=== PATIENT | female | born 1955 | race Caucasian/White ===

== ENCOUNTER 2017-01-29 08:11 | Day surgery (SDC) | payer OTHER, MEDICARE ==
--- NOTE | ~2017-01-29 | EGD ---
EGD REPORT [facility] [address] [address] NAME: EMMIE FLANAGAN : 57 STATUS : REG [facility]#: [id number] AGE: 61 ADM/REG DATE : 01/29/17 MR#: [id number] REPORT SERV DATE: 01/29/17 DICTATED BY: KAMAR HENLEY DATE: 01/29/17 REPORT STATUS : Draft [facility]ANS[facility] BY: [facility] DATE: 01/29/17 [facility] Patient Name: Emmie Flanagan Date of : 1955 Attending MD: BETH HENLEY MD Procedure Date No Time: 01/29/2017 Procedure: Colonoscopy Indications: Chronic diarrhea, Clinically significant diarrhea of unexplained origin Referring MD: SHANNA CASTILLO MD Medicines: See the Anesthesia note for documentation of the administered medications Complications: No immediate complications. Estimated blood loss: None. Procedure: Pre-Anesthesia Assessment: - ASA Grade Assessment: III - A patient with severe systemic disease. After I obtained informed consent, the scope was passed under direct vision. Throughout the procedure, the patient's blood pressure, pulse, and oxygen saturations were monitored continuously. The PCF [id number] was introduced through the anus and advanced to the cecum, identified by appendiceal orifice and ileocecal valve. The ileocecal valve, appendiceal orifice and rectum were photographed. The entire colon was examined. The colonoscopy was performed without difficulty. The patient tolerated the procedure well. The quality of the bowel preparation was adequate. Findings: The perianal and digital rectal examinations were normal. The colon (entire examined portion) appeared normal. Biopsies were taken with a cold forceps for histology. Non-bleeding internal hemorrhoids were found during retroflexion and were Grade I (internal hemorrhoids that do not prolapse). No other significant abnormalities were identified in a careful examination of the remainder of the colon. Impression: - The entire examined colon is normal. Biopsied. - Non-bleeding internal hemorrhoids. Recommendation: - Patient has a contact number available for emergencies. The signs and symptoms of potential delayed complications were discussed with the patient. Return to normal activities tomorrow. Written discharge instructions were provided to the patient. EGD REPORT [address] [address] NAME: EMMIE FLANAGAN : [birth year] [place]US : [place] [facility] [place] [id number] AGE: 61 ADM/REG DATE : 01/29/17 MR#: [id number] REPORT SERV DATE: 01/29/17 DICTATED BY: KAMAR HENLEY DATE: 01/29/17 REPORT STATUS : Draft TRANSCRIBED BY: [employer] DATE: 01/29/17 - Regular diet. - Discharge patient to home. - Continue present medications. - Await pathology results. - Repeat colonoscopy in 10 years for surveillance. Procedure Code(s): --- Professional --- 88074, Colonoscopy, flexible, proximal to splenic flexure; with biopsy, single or multiple Diagnosis Code(s): --- Professional --- K64.0, First degree hemorrhoids K52.9, Noninfective gastroenteritis and colitis, unspecified R19.7, Diarrhea, unspecified CPT copyright 2013 [employer]. All rights reserved. The codes documented in this report are preliminary and upon label coder review may be revised to meet current compliance requirements. BETH HENLEY MD 01/29/2017 10:35 AM This report has been signed electronically. Number of Addenda: 0 Note Initiated On: 01/29/2017 10:09 AM Scope Withdrawal Time 0 hours 7 minutes 36 seconds [address] [id number]
[~2017-01-29 08:11] MED LIST: ACET500CAP PO; ALEVE220 MG PO; ANASPAZ0.125 MG PO; CELEBREX2 PO; COZAAR100 MG PO; CYMBALTA30 PO; D 5000 PO; DEMA20 PO; IMMUNE GLOBULIN; IMU PO; K-TABS10 MEQ PO; KAPIDEX60 MG PO; LEVSINTAB PO; LIPITOR20 PO; LORTAB10 PO; LYRICA75 PO; MICRO-K10 MEQ PO; NEUR600 PO; P20 PO; PROTONIX PO; PYRID180 PO; PYRID60 PO; SKELAXIN8 PO; SPIRO50 PO; TUMSROLL PO; VYTORIN 10/20 T1 TAB PO; [UNRECOGNIZED DRUG - OTHER] IV
== END 2017-01-29 23:59 | disposition home or self-care (01) ==
LOC: DMU 08:11
PROVIDERS: Internal Medicine Gastroenterology
PROC: 0DBE8ZX Excision of Large Intestine, Via Natural or Artificial Opening Endoscopic, Diagnostic (ICD-10-PCS; principal; 2017-01-29 10:00)
DX: K52.9 Noninfective gastroenteritis and colitis, unspecified (principal); K64.0 First degree hemorrhoids; R19.7 Diarrhea, unspecified; G70.00 Myasthenia gravis without (acute) exacerbation; I10 Essential (primary) hypertension; E78.00 Pure hypercholesterolemia, unspecified; K21.9 Gastro-esophageal reflux disease without esophagitis; D64.9 Anemia, unspecified; M19.90 Unspecified osteoarthritis, unspecified site; Z79.899 Other long term (current) drug therapy
CPT/HCPCS: 88305